=== PATIENT | female | born 1970 | race Hispanic/Latino ===

== ENCOUNTER 2018-11-04 13:25 | Inpatient (IN) | payer OTHER | END 2018-11-06 14:00 | disposition home or self-care (01) | LOC: EDH 13:25 → EDHIP 16:59 → 2AH 18:57 | DX: G93.2 Benign intracranial hypertension (principal); Z68.43 Body mass index [BMI] 50.0-59.9, adult; H53.2 Diplopia; R51 Headache; E66.01 Morbid (severe) obesity due to excess calories ==